=== PATIENT | male | born 1945 | race Asian ===

== ENCOUNTER → 2019-07-24 | Outpatient (REF) ==
--- NOTE | 2019-07-24 12:28 | REP ---
Clinical: PPD positive for employment evaluation Comparison: None . Technique: PA and lateral. Findings: The mediastinum and cardiac silhouette are normal. The lung noland are clear and without acute consolidation, effusion, or pneumothorax. The skeletal structures are intact and normal. Impression: 1. No acute cardiopulmonary process. Electronically Signed by Eliezer Escalera MD 07/24/2019 12:20 P
== END ==
LOC: M RAD 11:54
PROVIDERS: ATTEND Nurse Practitioner Adult Health
DX: Z02.89 Encounter for other administrative examinations (principal); R76.11 Nonspecific reaction to tuberculin skin test without active tuberculosis